=== PATIENT | female | born 1940 | race Caucasian/White ===

== ENCOUNTER 2021-11-19 10:25 | Outpatient (CLI) | payer OTHER, SELFPAY ==
--- NOTE | ~2021-11-19 | XR_ITS ---
XR lumbar spine min 4V 11/19/2021 11:25 Indication: Rheumatoid arthritis Procedure: 6 views of the lumbar spine Comparison: No prior studies for comparison. Findings: There is mild wedge-shaped appearance to T11-L1 which appears chronic. There is mild disc n arrowing at all lumbar levels, most advanced at L4-5. There is facet hypertrophy at L4-5 and L5-S1. T here is atherosclerosis of the aorta. Prominent lateral marginal osteophytes at L1-2 and L2-3. Sacral foramen are symmetric. Pedicles intact. There is osteoarthritis of the hips, left greater than right , partially visualized. Impression: 1: Moderate lumbar spondylosis. Reviewed, dictated and finalized at location A. Impression: 1: Moderate lumbar spondylosis.
--- NOTE | ~2021-11-19 | XR_ITS ---
XR foot RT standing 2V 11/19/2021 11:25 Indication: Right foot pain. Rheumatoid arthritis. Procedure: 2 views right foot Comparison: No prior studies for comparison. Findings: Osteopenia. There is mild osteoarthritis of the first MTP and IP joints. Lisfranc joint int act. No fracture or traumatic malalignment. Small degenerative calcaneal enthesophyte at the plantar surface. Mild talonavicular osteoarthritis. Impression: 1: Mild polyarticular osteoarthritis. Reviewed, dictated and finalized at location A. Impression: 1: Mild polyarticular osteoarthritis.
--- NOTE | ~2021-11-19 | XR_ITS ---
XR foot LT standing 2V 11/19/2021 11:25 Indication: Rheumatoid arthritis Procedure: 2 views left foot Comparison: No prior studies for comparison. Findings: There is polyarticular osteoarthritis, most advanced at the first MTP and IP joints. Osteop enia. No Lisfranc joint is grossly intact. No focal soft tissue abnormality. Small degenerative calca reyes enthesophytes. No erosive changes are identified. No foreign bodies. Impression: 1: Polyarticular osteoarthritis of the left foot. Reviewed, dictated and finalized at location A. Impression: 1: Polyarticular osteoarthritis of the left foot.
--- NOTE | ~2021-11-19 | XR_ITS ---
XR hand BI arthritis min 3V 11/19/2021 11:26 Indication: Rheumatoid arthritis. Joint pain. Procedure: 4 views of each hand Comparison: No prior studies for comparison. Findings: There is bilateral mild-moderate polyarticular osteoarthritis of the interphalangeal joints as well as the first and fifth MCP joints. There are degenerative changes of the triscaphe and first CMC joints. Osteopenia. No acute fracture or traumatic malalignment. No erosive changes are identifi ed. 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 Reviewed, dictated and finalized at location A. 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
--- NOTE | ~2021-11-19 | XR_ITS ---
XR hip BI 2V w AP pelvis 11/19/2021 11:25 Indication: Bilateral hip pain. Rheumatoid arthritis. Procedure: AP pelvis and 2 views each hip Comparison: 09/10/2014 Findings: There is bilateral osteoarthritis of the hips, severe on the left and moderate on the right . Pelvic rings are intact. No acute fracture or traumatic malalignment. No significant soft tissue ab normality. No foreign bodies. Impression: 1: Bilateral osteoarthritis of the hips, left greater than right. Reviewed, dictated and finalized at location A. Impression: 1: Bilateral osteoarthritis of the hips, left greater than right.
== END 2021-11-19 10:26 | disposition home or self-care (01) ==
PROVIDERS: PCP Internal Medicine; Visit Provider Internal Medicine
DX: M06.9 Rheumatoid arthritis, unspecified (principal); R76.8 Other specified abnormal immunological findings in serum; Z71.89 Other specified counseling; M19.041 Primary osteoarthritis, right hand; M19.042 Primary osteoarthritis, left hand; M19.031 Primary osteoarthritis, right wrist; M19.032 Primary osteoarthritis, left wrist; M19.071 Primary osteoarthritis, right ankle and foot; M47.896 Other spondylosis, lumbar region; M19.072 Primary osteoarthritis, left ankle and foot; M16.0 Bilateral primary osteoarthritis of hip
CPT/HCPCS: 72110; 73130; 73521; 73620

== ENCOUNTER 2022-02-05 14:00 | Outpatient (RCR) | payer OTHER, SELFPAY ==
--- NOTE | 2021-12-21 09:44 | PTOPEVAL1 ---
Evaluation Information Assessment Status Evaluation Diagnosis L hip pain Subjective Information Pt states she has hip pain all the time of varying intensities. She states prolonged standing and walking make her pain worse. Pt states she can stand for about 30 mins prior to needing to sit. She is able to walk around the store without needing to sit. Reported Pain Level Pain Score 3: Self Report Assessment PT Clinical Summary Samra is a 81 y/o female who presents to therapy today for her initial evaluation with a diagnosis of L hip pain. Today she demonstrates a clear antalgic gait pattern on the L and also demonstrates no active hip extension beyond neutral during ambulation. She has good strength throughout her emily LEs and has weakness in her hips emily. She reports pain with max flexion and extension on her L LE. Skilled physical therapy services are indicated to address the deficts noted above, to manage pain, and to return to baseline function. Plan of Care Interventions Electrical Stimulation,Gait Training,Hot Pack/Cold Pack,Manual Therapy,Patient/Caregiver Educati, Therapeutic Activities,Therapeutic Exercise PT Services Indicated Yes Treatment Frequency and 1-2x/wk for 4 wks Duration These treatments will address the objective and functional deficits as defined above. The patient will be advanced safely and appropriately in order for the patient to progress towards his/her prior level of function. Additional exercises will be introduced and as well as a comprehensive home exercise program upon discharge, if needed, ?to ensure carryover of functional gains achieved in the clinic. This treatment plan has been reviewed and agreement upon by the patient.
--- NOTE | 2022-01-05 09:49 | PCPTNOTE ---
Patient called & cancelled scheduled appointment this date due to being ill.
--- NOTE | 2022-01-11 15:40 | PTOPPROGNS ---
Assessment and note entered by Rocio Blackmon, PT Evaluation Information Assessment Status Progress Diagnosis L hip pain Subjective Information Pt states she has hip pain all the time of varying intensities. She states prolonged standing and walking make her pain worse. Pt states she can stand for about 30 mins prior to needing to sit. She is able to walk around the store without needing to sit. Assessment PT Clinical Summary Pt was reassessed for ingrid hip pain today after receiving updated prescription from MD. Samra reports her lowest pain level is a 2/10 and highest is 5/10 (decreased from 10/10). She demo's increased PROM in multiple planes including flexion and IR and ER. Improved ability to relax today to allow for deeper stretches. Pt states she has been performing her abdominal HEP awareness activities, has not been doing her glute sets. Discussed today performance of HEP throughout day with normal activities, such as glute sets with standing activities. She was provided additional HEP today for glute sets and stretching of L hip into extension. Pt has shown improvement, however has yet to meet all her goals or plateau with treatment. Thus pt would benefit from continued therapy to address deficit in ROM, body awareness and control, and decrease pain for improvement in her functional activities. Plan of Care Interventions Hot Pack/Cold Pack,Manual Therapy,Neuro Re- education,Therapeutic Activities,Therapeutic Exercise,Self-Care/Home Management PT Services Indicated Yes These treatments will address the objective and functional deficits as defined above. The patient will be advanced safely and appropriately in order for the patient to progress towards his/her prior level of function. Additional exercises will be introduced and as well as a comprehensive home exercise program upon discharge, if needed, ?to ensure carryover of functional gains achieved in the clinic. This treatment plan has been reviewed and agreement upon by the patient.
--- NOTE | 2022-01-22 12:54 | PCPTNOTE ---
Patient called to cancel appointment this date due to feeling ill.
--- NOTE | 2022-02-05 16:10 | BUPTOPDC ---
Assessment and note entered by Rocio Blackmon, PT Discharge Information Diagnosis L hip pain Subjective Information Pt states her pain has been very low lately. She feels 90% improved overall and has an easier time with activities at [facility]. She reports she does not do her exercises as she should, but does some of them sometimes. Reported Pain Level Pain Score 1: Self Report Additional Pain Score Comments only takes a half a muscle relaxer before bed and last night didn't take one at all Assessment PT Clinical Summary Pt reports 90% improvement overall, pain is 1/10 at lowest but 2/10 at highest. She reports she does not perform her exercises as she should. Her PROM measurements remain unchanged from previous progress note, as does her strength. However her TUG and sit<>stand test are mildly improved, and she has met many of her goals related to her plan of care. Thus patient is being discharged from current POC. Pt was advised on when to return to therapy if needed in the future. Plan of Care PT Services Indicated No
== END 2022-02-17 08:20 | disposition home or self-care (01) ==
LOC: ANHHIPT 14:00
PROVIDERS: PCP Internal Medicine; Visit Provider Internal Medicine
DX: M25.552 Pain in left hip (principal)
CPT/HCPCS: 97110; 97112; 97140; 97161; 97162; 97530

== ENCOUNTER 2024-01-16 17:50 | Emergency (ER) | payer OTHER, SELFPAY ==
--- NOTE | ~2024-01-16 | CT_ITS ---
EXAMINATION: CTA BRAIN/CAROTID DATE: 01/16/2024 22:56 INDICATION: Stroke with increased confusion and seizure TECHNIQUE: Computed tomographic angiography (CTA) of the head and neck was performed with 100 mL Omni paque-350 intravenous contrast. Multiplanar reconstructions and maximum intensity projection 3D-recon structions of the carotid arteries and of the intracranial arteries were created by the technologist on a separate workstation. Automated exposure control and iterative reconstruction technique were emp loyed.The dose-length product was 991.78 mGy-cm. COMPARISON: Head CT dated 01/16/2024 FINDINGS: Carotid arteries: Visualized aortic arch is normal in caliber with no dissection. There is minimal atherosclerotic plaq ue with 0% stenosis of the right and left carotid bulbs relative to normal distal artery lumen diamet er (NASCET criteria). There is mosaic attenuation in the upper lungs along with several scattered the indeterminate small pulmonary nodules a few which measure up to 6 mm in maximal diameter. Moderate c ervical spondylosis. Likely benign 9 mm left thyroid nodule. Indeterminate 12 x 10 mm enhancing nodul e slightly to the right of midline at the piriform sinus. No pathologically enlarged cervical lymphad enopathy. Intracranial arteries Minimal atherosclerotic plaque at the bilateral carotid siphons. Bilateral vertebral arteries are cod ominant. There is no hemodynamically significant stenosis in the vertebral, basilar and internal horan tid arteries. There are no aneurysms identified. Both A1 and P1 segments are patent. There is a mode rate, 50-70% stenosis along the right P1 segment. There are patent anterior communicating and left po sterior commuting arteries. Cerebral arterial arborization appears symmetric. There is asymmetric inc reased gyral enhancement in the right occipital and parieto-occipital region. No more focal abnormall y enhancing brain lesions identified. Complete opacification of the right maxillary sinus with thicke liliana sclerotic kendall. The medial kendall expanded medially suspicious for a mucocele. There is additiona l mild mucoperiosteal thickening in the bilateral ethmoid sinuses. Torus palatinus. IMPRESSION: 1. Asymmetric increased gyral enhancement in the right occipital and parieto-occipital region which c an be seen with ischemia, migraines, postictal enhancement or encephalitis. 2. 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 3. 0% stenosis of the right and left carotid bulbs relative to normal distal artery lumen diameter (N ASCET criteria). 4. Several scattered indeterminate small pulmonary nodules with a few measuring up to 6 mm with diffe rential including old granulomatous disease and metastatic disease. Correlate for history of prior ma lignancy and with any prior outside imaging if available. Could consider further evaluation with cont rast-enhanced CT of the chest, abdomen and pelvis as clinically indicated. 5. 12 x 10 mm nodular region of apparent enhancement at the right piriform sinus which raises concern for malignancy. Recommend laryngoscopy for further evaluation. 6. 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 Reviewed, dictated and finalized at location A. IMPRESSION: 1. Asymmetric increased gyral enhancement in the right occipital and parieto-oc cipital region which can be seen with ischemia, migraines, postictal enhancemen t or encephalitis. 2. 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 3. 0% stenosis of the right and left carotid bulbs relative to normal distal ar oskar lumen diameter (NASCET criteria). 4. Several scattered indeterminate small pulmonary nodules with a few measuring up to 6 mm with differential including old granulomatous disease and metastati
--- NOTE | ~2024-01-16 | XR_ITS ---
EXAMINATION: XR chest 1V portable DATE: 01/16/2024 20:10 INDICATION: Seizure TECHNIQUE: frontal view of the chest was obtained. COMPARISON: Chest radiograph dated 07/25/2007 FINDINGS: Mild increased interstitial pattern in the bilateral mid and lower lung zones consistent with mild pu lmonary edema. No focal airspace consolidation, pleural effusion or pneumothorax. The cardiomediastin al silhouette is normal. IMPRESSION: 1. Mild interstitial pattern in the bilateral mid and lower lung zones consistent with mild pulmonary edema. Reviewed, dictated and finalized at location A. IMPRESSION: 1. Mild interstitial pattern in the bilateral mid and lower lung zones consiste nt with mild pulmonary edema.
[2024-01-16 17:50] VITALS: BP 167/84; PULSE 88; RESP 17; TEMP 36.6; O2SAT 96
[2024-01-16 17:58] LABS: Glucose Point of Care 191 mg/dl (65-105)
--- NOTE | 2024-01-16 18:28 | PC.NURSE ---
pt reportedly having what seem to be seizure like activity of the left upper extremety. Per the daughter, the patient had been having this occur the past couple of days and maybe even in the days following the initial stroke a week ago. 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 pt has peripheral vision loss to the left eye which has been present since initial stroke. daughter states that the ct scans done at [facility] all didn't show anything at all.
[2024-01-16 18:36] VITALS: BP 183/74; PULSE 98; RESP 18; O2SAT 97
--- NOTE | 2024-01-16 19:31 | ECG_ITS ---
Test Date: 2024-01-16 19:56:28 Measurements Intervals [place] Rate: 82 P: 83 [place]: 177 QRS: -39 QRSD: 81 T: 46 QT: 373 QTc: 437 Interpretive Statements SINUS RHYTHM LEFT AXIS DEVIATION BORDERLINE ST-T WAVE ABNORMALITY- LAT/HIGH LAT LEADS BASELINE ARTIFACT- I, II, III, AVR, AVL, AVF, V1-V2 BORDERLINE ECG No previous ECG available for comparison Electronically Signed On 01-17-2024 06:37:43 CDT by Randell Dale D.O.
--- NOTE | 2024-01-16 19:38 | ED.GENADULT ---
HPI - General Adult General Chief complaint: Unspecified <Lin Dickson PA-C - Last Filed: 01/18/24 09:15> Stated complaint: sent by SADA <Lin Dickson PA-C - Last Filed: 01/18/24 09:15> Time Seen by Provider: 01/16/24 18:35 <Lin Dickson PA-C - Last Filed: 01/18/24 09:15> History of Present Illness HPI narrative: 83-year-old female with history of CKD, type 2 diabetes, hypertension, hyperlipidemia, history of breast cancer with right mastectomy, TIA approximately 1 year ago, CVA proximally 2 weeks ago presents to the ED via EMS from [facility] for concerns for seizure-like activity. Patient's daughter is at bedside to assist with history. States 17 days ago the patient presented to [place] ED for left vision loss and leaning to the left with walking. She had negative CT scans and was transferred to [facility] he following day where she had a negative MRI. 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 Per rehab note she also had associated hypertensive encephalopathy. She presents today due to concerns for seizure activity. [facility] today staff noticed that the patient was having 6 7 episodes of freezing up for few seconds during therapy. Patient's daughter states she the patient would divert her eyes to the left and raise her left hand. During these episodes she has been arousable and able to answer questions. Per the daughter these episodes could last any time between seconds to minutes. Upon my evaluation this had occurred 3 times. Each time the patient was conversation with me while at happen but with state ?something is squeezing my hand? or ?I see things moving over to the left?. The patient denies worsening vision changes, focal numbness or weakness, head injury trauma, chest pain or shortness of breath, cough or congestion, abdominal pain, N/V/D, dysuria or hematuria. She had an outpatient non-con head CT ordered by [facility] which showed no acute intracranial hemorrhage. There is effacement of the sulci in the right parietal area which may indicated infarct with recommendations for an MRI. <Lin Dickson PA-C - Last Filed: 01/18/24 09:15> Related Data Home medications: Home Medications Medication Instructions Recorded Confirmed amlodipine 10 mg tablet 10 mg PO DAILY 12/27/19 01/10/24 aspirin 325 mg tablet 325 mg PO DAILY 12/27/19 01/10/24 acetaminophen 325 mg tablet 650 mg PO Q6H PRN unknown 01/10/24 01/10/24 hydralazine 25 mg tablet 25 mg PO BID 01/10/24 01/10/24 hydrochlorothiazide 25 mg tablet 25 mg PO DAILY 01/10/24 01/10/24 irbesartan 300 mg tablet 300 mg PO DAILY 01/10/24 01/10/24 metformin 500 mg tablet 2,000 mg PO QACBREAK 01/10/24 01/10/24 therapeutic multivitamin 1 tablet PO DAILY 01/10/24 01/10/24 rosuvastatin 20 mg tablet 20 mg PO DAILY 01/11/24 01/11/24 <VIVEK Leon Last Filed: 01/18/24 09:15> Allergies/adverse reactions: Allergies Allergy/AdvReac Type Severity Reaction Status Date / Time ibuprofen Allergy Severe SWELLING Verified 01/16/24 18:27 IN LEGS rofecoxib Allergy Severe SWELLING Verified 12/16/22 13:44 OF LEGS amoxicillin Allergy Mild unk Verified 12/16/22 13:44 nitrofurantoin Allergy Mild Nausea Verified 12/16/22 13:44 sulfamethoxazole Allergy Mild Itching Verified 12/16/22 13:44 [From Sulfamethoxazole-Trimethoprim] trimethoprim Allergy Mild Itching Verified 12/16/22 13:44 [From Sulfamethoxazole-Trimethoprim] NONSTEROIDAL Allergy Severe RASH, HIVES Uncoded 12/16/22 13:44 <VIVEK Leon Last Filed: 01/18/24 09:15> Review of Systems Review of Systems: All systems reviewed & are unremarkable except as noted in HPI and below <VIVEK Leon Last Filed: 01/18/24 09:15> PMFSH Past Medical History Medical History: Medical History (
[2024-01-16 19:43] LABS: Basophils Absolute Auto 0.1 K/mm3 (0.0-0.1); Basophils Percent Auto 0.6 % (0.2-1.2); Eosinophils Absolute Auto 0.1 K/mm3 (0-0.3); Eosinophils Percent Auto 1.2 % (0-4.4); Hematocrit 43.6 % (37.0-47.0); Hemoglobin 14.6 g/dL (12.0-15.0); Immature Granulocyte Absolute 0.04 K/mm3 (0.00-0.031); Immature Granulocyte Percent A 0.5 % (0-0.5); Lymphocytes Absolute Auto 1.93 K/mm3 (0.9-3.2); Lymphocytes Percent Auto 23.1 % (18.3-44.2); Mean Corpuscular HGB Conc 33.5 g/dl (32-36); Mean Corpuscular Hemoglobin 30.7 pg (26-34); Mean Corpuscular Volume 91.8 fl (80-100); Monocytes Absolute Auto 0.7 K/mm3 (0.1-0.6); Monocytes Percent Auto 7.9 % (2.6-8.5); Neutrophils Absolute Auto 5.6 K/mm3 (1.3-6.7); Neutrophils Percent Auto 66.7 % (45.5-73.1); Platelet Count Result 393 k/mm3 (150-375); Red Blood Count 4.75 M/mm3 (4.2-5.4); Red Cell Distribution Width 13.2 % (11.5-14.5); White Blood Count 8.3 K/mm3 (4.5-10.0)
[2024-01-16 19:52] VITALS: BP 178/76; PULSE 81; RESP 19; TEMP 36.3; O2SAT 97
[2024-01-16 19:54] LABS: INR 0.9; Partial Thromboplastin Time 27.3 Seconds (22.3-36.8); Prothrombin Time 12.9 Seconds (11.1-14.7)
[2024-01-16 20:02] LABS: Add Urine Microscopic? YES; Appearance Urine Clear (Clear); Bacteria Urine 4+ /hpf; Bilirubin Urine Negative (Negative); Blood Urine Negative (Negative); Color Urine Yellow (Yellow); Glucose Urine UA Trace mg/dL (Negative); Ketones Urine Negative (Negative); Leukocyte Esterase Ur Negative LEU/UL (Negative); Nitrate Urine Negative (Negative); Non Pathogenic Casts 0-2; Protein Urine Trace mg/dL (Negative); RBC Urine 0-2 /hpf (0-2); Specific Grav Ur 1.009 (1.001-1.035); Squamous Epithelial Cell Urine None Seen /hpf (Few); Urobilinogen Urine 0.2 mg/dL (<2.0); WBC Urine 0-5 /hpf (0-3)
[2024-01-16 20:17] LABS: Alanine Aminotransferase 16 U/L (6-35); Albumin Level 4.3 g/dL (3.5-5.1); Alkaline Phosphatase 122 U/L (38-126); Anion Gap 10 mmol/L (4-12); Aspartate Amino Transferase 23 U/L (14-36); Bilirubin,Total 0.4 mg/dL (0.2-1.3); Blood Urea Nitrogen 34 mg/dL (7-17); Calcium 9.8 mg/dL (8.4-10.2); Carbon Dioxide 29 mmol/L (22-30); Chloride 95 mmol/L (98-107); Estimated CRCL calculation 49 ml/min; Estimated Glomerular Filt Rate > 60; Glucose 181 mg/dL (65-110); Magnesium 1.7 mg/dL (1.6-2.3); Potassium 4.1 mmol/L (3.4-5.0); Sodium 134 mmol/L (137-145)
[2024-01-16 20:29] LABS: Troponin I < 0.012 ng/mL (0.000-0.034)
[2024-01-16 21:00] VITALS: BP 172/81; PULSE 86; RESP 17; O2SAT 96
[2024-01-16 21:29] LABS: NT Pro B Type Natriuretic Pept 92 pg/mL (19.9-100)
[2024-01-16 22:36] VITALS: O2SAT 98
[2024-01-16 23:10] VITALS: BP 148/61; PULSE 87; RESP 18; O2SAT 99
[2024-01-17 01:15] VITALS: BP 171/57; PULSE 86; RESP 17; O2SAT 95
--- NOTE | 2024-01-17 01:56 | PC.NURSE ---
Pt has recieved bed at [facility], room 1457-A. Number to call report, . Accepting doc is Dr. Hayward.
[2024-01-17 02:00] VITALS: BP 166/71; PULSE 85; RESP 16; O2SAT 99
[2024-01-17 02:03] VITALS: BP 166/81; PULSE 86; RESP 15; O2SAT 99
[2024-01-17 02:41] VITALS: BP 166/71; PULSE 85; RESP 16; TEMP 36.6; O2SAT 99
== END 2024-01-17 03:06 | disposition short-term general hospital (02) ==
PROVIDERS: Physician Assistant; Emergency Provider Emergency Medicine; PCP Family Medicine
DX: R56.9 Unspecified convulsions (principal); R91.8 Other nonspecific abnormal finding of lung field; E78.5 Hyperlipidemia, unspecified; E11.22 Type 2 diabetes mellitus with diabetic chronic kidney disease; I12.9 Hypertensive chronic kidney disease with stage 1 through stage 4 chronic kidney disease, or unspecified chronic kidney disease; N18.9 Chronic kidney disease, unspecified; I25.10 Atherosclerotic heart disease of native coronary artery without angina pectoris; I69.898 Other sequelae of other cerebrovascular disease; H53.462 Homonymous bilateral field defects, left side; M19.90 Unspecified osteoarthritis, unspecified site; G25.81 Restless legs syndrome; Z96.653 Presence of artificial knee joint, bilateral; Z87.01 Personal history of pneumonia (recurrent); Z85.3 Personal history of malignant neoplasm of breast; Z90.11 Acquired absence of right breast and nipple; Z79.82 Long term (current) use of aspirin; Z79.84 Long term (current) use of oral hypoglycemic drugs; Z90.710 Acquired absence of both cervix and uterus
CPT/HCPCS: 36415; 70496; 70498; 71045; 80053; 81001; 82948; 83735; 83880; 84484; 85025; 85610; 85730; 93005; 99285; Q9967